=== PATIENT | male | born 1970 | race Caucasian/White ===

== ENCOUNTER 2016-06-23 04:14 | Emergency (ER) | payer BC ==
[2016-06-23 04:33] VITALS: TEMP 97; O2SAT 98
[2016-06-23] MEDS ORDERED: KETOROLAC TROMETHAMINE INJ 60 MG/2 ML VIAL IM ONE (04:38)
--- NOTE | 2016-06-23 04:41 | ED.PDOC ---
History of Present Illness - General Chief Complaint: Lower Extremity Injury Stated Complaint: right leg pain Time Seen by Provider: 06/23/16 04:38 Source: patient, RN notes reviewed, Vital Signs reviewed Exam Limitations: no limitations - History of Present Illness Initial Comments: Patient is a 46 y/o male who has right leg pain since last night. He does not recall any injury. The pain goes from his right buttock down his thigh. It is moderate to severe. He has not had this pain before. He denies any calf pain or leg swelling. No hip pain. Timing/Duration: 4-6 hours Severity: moderate, severe Improving Factors: immobilization Worsening Factors: movement Associated Symptoms: denies symptoms Allergies/Adverse Reactions: Allergies Phenytoin [From Dilantin] Allergy (Verified 06/23/16 04:21) Home Medications: Ambulatory Orders Naproxen [Naprosyn] 500 mg PO BID #30 tab 06/23/16 tiZANidine [Zanaflex] 4 mg PO TID PRN #30 tab 06/23/16 Review of Systems - Review of Systems Constitutional: States: no symptoms reported EENTM: States: no symptoms reported Respiratory: States: no symptoms reported Cardiology: States: no symptoms reported Gastrointestinal/Abdominal: States: no symptoms reported Genitourinary: States: no symptoms reported Musculoskeletal: States: back pain, muscle pain Skin: States: no symptoms reported Neurological: States: no symptoms reported Endocrine: States: no symptoms reported Hematologic/Lymphatic: States: no symptoms reported All other Systems: Reviewed and Negative Past Medical History (General) - Patient Medical History Hx Seizures: Yes Hx Stroke: Yes - Vaccination History Hx Tetanus, Diphtheria Vaccination: Yes - 3yrs Hx Influenza Vaccination: No - Social History Hx Tobacco Use: Yes Hx Alcohol Use: Yes Family Medical History - Family History Father Hx Family Cancer: Yes Physical Exam - Physical Exam General Appearance: Alert, Obvious distress - Mild, Unkempt Ears, Nose, Throat: hearing grossly normal Respiratory: no respiratory distress Back Exam: normal inspection, no CVA tenderness, no vertebral tenderness Extremity: normal range of motion, non-tender, normal inspection, no pedal edema , no calf tenderness, other - + Right straight leg raise. Neurologic: alert, normal mood/affect Skin Exam: normal color, warm/dry Progress - Progress Progress: 06/23/16 05:00 Patient noticed slight improvement after Toradol. He was not given a muscle relaxer because he did not have a ride home. I will give him a prescription for Naproxen and Tizanidine and have him stay off work tomorrow to rest. He was given instructions to get a PCP and follow up with them if his symptoms persist. Pt's blood pressure went down to 143/87 after the shot of Toradol. - Results/Orders Results/Orders: 06/23/16 04:26 Temperature 97.0 F L Pulse Rate [ 82 left] Respiratory 18 Rate Blood Pressure 174/100 [left] O2 Sat by Pulse 98 Oximetry Departure - Departure Clinical Impression: Sciatica Qualifiers: Laterality: right Qualifier Code: (M54.31) Sciatica, right side Time of Disposition: 05:03 Disposition: Discharge to Home or Self Care Condition: Excellent Departure Forms: ED Discharge - Pt. Copy, Patient Portal Self Enrollment Instructions: Sciatica, DI for Sciatica Diet: resume usual diet Activity: other - No heavy lifting or bending. Prescriptions: Naproxen [Naprosyn] 500 mg PO BID #30 tab tiZANidine [Zanaflex] 4 mg PO TID PRN #30 tab PRN Reason: Muscle Spasms Home Medications: Ambulatory Orders Naproxen [Naprosyn] 500 mg PO BID #30 tab 06/23/16 tiZANidine [Zanaflex] 4 mg PO TID PRN #30 tab 06/23/16 Additional Instructions: Follow up with a primary care physician if symptoms persist. Follow up in the ER if symptoms worsen.
[2016-06-23 05:14] VITALS: BP 143/87
== END 2016-06-23 05:14 | disposition home or self-care (01) ==
LOC: ER 04:14
DX: M54.31 Sciatica, right side (principal); Z88.8 Allergy status to other drugs, medicaments and biological substances; Z87.891 Personal history of nicotine dependence; Z79.899 Other long term (current) drug therapy

== ENCOUNTER 2019-10-18 00:41 | Emergency (ER) | payer BC ==
[2019-10-18] MEDS ORDERED: NAPROXEN SODIUM 220 MG TAB PO ONE (00:56)
[2019-10-18 01:00] VITALS: TEMP 98.2
--- NOTE | 2019-10-18 01:01 | ED.PDOC ---
History of Present Illness - General Chief Complaint: General Stated Complaint: my right knee hurts Time Seen by Provider: 10/18/19 00:53 Source: patient, RN notes reviewed, Vital Signs reviewed Exam Limitations: no limitations - History of Present Illness Initial Comments: Patient is a 49-year-old male who presents the ED for evaluation of right knee pain. States his right knee has been hurting off and on for several years. He was given a pain medication in the past that helped, but is now taking Tylenol as needed with minimal relief. He denies ever seeing an orthopedic surgeon for his knee pain or having any imaging recently. Denies any recent injury or trauma to the area. States pain is worse when he is been on his feet walking a lot during the day. Allergies/Adverse Reactions: Allergies Phenytoin [From Dilantin] Allergy (Verified 06/23/16 04:21) Home Medications: Ambulatory Orders Naproxen [Naprosyn] 500 mg PO BID #30 tab 06/23/16 tiZANidine [Zanaflex] 4 mg PO TID PRN #30 tab 06/23/16 Naproxen [Naprosyn] 500 mg PO BID PRN #45 tab 10/18/19 Review of Systems - Review of Systems Constitutional: Denies: chills, fever Respiratory: Denies: cough, short of breath Cardiology: Denies: chest pain, palpitations, syncope Gastrointestinal/Abdominal: Denies: abdominal pain, nausea, vomiting Musculoskeletal: States: see HPI All other Systems: Reviewed and Negative Past Medical History (General) - Patient Medical History Hx Seizures: Yes Hx Stroke: Yes - Vaccination History Hx Tetanus, Diphtheria Vaccination: Yes - 3yrs Hx Influenza Vaccination: No - Social History Hx Tobacco Use: Yes Hx Alcohol Use: Yes Family Medical History - Family History Father Hx Family Cancer: Yes Physical Exam - Physical Exam General Appearance: Alert, Comfortable, No apparent distress Neck: full range of motion, supple Respiratory: chest non-tender, lungs clear, normal breath sounds, no respiratory distress Cardiovascular/Chest: normal peripheral pulses, regular rate, rhythm Back Exam: no vertebral tenderness Extremity: other - Right knee is tender to palpation diffusely. There is no deformity, erythema, effusion. He has 2+ dorsalis pedis and posterior tibial pulses. No calf tenderness. Skin Exam: normal color, warm/dry Progress - Progress Progress: 10/18/19 01:2 Patient presents with right knee pain for the past several years that is worse when he has been on his feet all day. Imaging shows no acute findings. I have discussed with patient results and recommend weightbearing as tolerated and follow-up with an orthopedic surgeon within 1 week. Will treat with naproxen as needed for pain and follow-up with PCP in 1 to 2 days for continued evaluation. Strict return precautions given. - Results/Orders Results/Orders: RIGHT KNEE XRAY CLINICAL HISTORY: knee pain COMPARISON: None. TECHNIQUE: XR KNEE 4 OR MORE VIEWS 10/18/2019 12:56 AM CDT FINDINGS: There is no fracture. There is possible mild subluxation of the patella laterally. There is moderate narrowing of the patellofemoral compartment. There is prepatellar soft tissue swelling. IMPRESSION: Mild, possibly positional subluxation of the patella. No definite fracture. Departure - Departure Clinical Impression: Right anterior knee pain Time of Disposition: 01:21 Disposition: Discharge to Home or Self Care Condition: Good Departure Forms: ED Discharge - Pt. Copy, Patient Portal Self Enrollment Instructions: Knee Pain (DC) Diet: resume usual diet Activity: increase activity as tolerated Referrals: Jackson Merritt MD [Primary Care Provider] - 1-2 Days Zach Mtz MD [Active Staff] - 1-2 Weeks Prescriptions: Naproxen [Naprosyn] 500 mg PO BID PRN #45 tab PRN Reason: Pain Home Medications: Ambulatory Orders Naproxen [Naprosyn] 500 mg PO BID #30 tab 06/23/16 tiZANidine [Zanaflex] 4 mg PO TID PRN #30 tab 06/23/16 Naproxen [Naprosyn] 500 mg PO BID PRN #45 tab 10/18/19
--- NOTE | 2019-10-18 01:20 | RAD ---
CLINICAL HISTORY: knee pain COMPARISON: None. TECHNIQUE: XR KNEE 4 OR MORE VIEWS 10/18/2019 12:56 AM CDT FINDINGS: There is no fracture. There is possible mild subluxation of the patella laterally. There is moderate narrowing of the patellofemoral compartment. There is prepatellar soft tissue swelling. IMPRESSION: Mild, possibly positional subluxation of the patella. No definite fracture. Electronically signed by: Pete Edouard MD 10/18/2019 1:19 AM CDT
[2019-10-18 01:23] VITALS: BP 133/92
[2019-10-18 01:27] VITALS: O2SAT 98
== END 2019-10-18 01:27 | disposition home or self-care (01) ==
LOC: ER 00:41
DX: M25.561 Pain in right knee (principal); R56.9 Unspecified convulsions; Z86.19 Personal history of other infectious and parasitic diseases; Z87.891 Personal history of nicotine dependence; Z88.8 Allergy status to other drugs, medicaments and biological substances